=== PATIENT | female | born 1985 | race Caucasian/White ===

== ENCOUNTER → 2018-01-24 | Outpatient (CLI) | payer BC ==
[~2018-01-24] MED LIST: HYDACE5 PO; IBUP600 PO; LABE100 PO; META800 PO; METF500 PO; MULVITMINE PO; PROM25 PO; RXHYD5325 PO; RXPROM25 PO
== END ==
LOC: LAB 08:17 → LAB SHORT 08:17
DX: N39.0 Urinary tract infection, site not specified (principal)
CPT/HCPCS: 87077; 87086; 87186

== ENCOUNTER 2018-04-01 03:58 | Emergency (ER) | payer BC ==
[~2018-04-01] VITALS: Ht 167.6 cm; Wt 81.7 kg
[~2018-04-01 03:58] MED LIST changes: +Pantoprazole So40 MG PO; +SLOW FE142 MG PO; +Verotin-Gr Cap1 EACH PO
[2018-04-01 04:50] LABS: Chloride (POC) 105 mmol/L (98-108); Creatinine (POC) 0.5 mg/dL (0.6-1.0); Glucose (ISTAT POC) 105 mg/dL (70-99); Hemoglobin (POC) 11.2 g/dL (12.0-16.0); Potassium (POC) 3.4 mmol/L (3.5-5.5); Sodium (POC) 140 mmol/L (135-148); Total CO2 (POC) 20 mmol/L (21-32)
== END 2018-04-01 06:20 | disposition home or self-care (01) ==
LOC: ER 03:58
PROVIDERS: Emergency Medicine
DX: O03.9 Complete or unspecified spontaneous abortion without complication (principal); Z79.899 Other long term (current) drug therapy
CPT/HCPCS: 36415; 80047; 85014; 88305; 96374; 96375; 99284-25; J2405; J3010

== ENCOUNTER 2018-06-09 00:33 | Day surgery (SDC) | payer BC | END 2018-06-09 22:50 | disposition home or self-care (01) | LOC: RAD 00:33 | DX: Q51.3 Bicornate uterus (principal); N96 Recurrent pregnancy loss | CPT/HCPCS: 58340; 74740; Q9967 ==

== ENCOUNTER 2021-12-06 02:32 | Emergency (ER) | payer OTHER, BC ==
[~2021-12-06] VITALS: Ht 172.7 cm; Wt 122.5 kg
[2021-12-06] MEDS ORDERED: OZEMPIC0.25 MG/0. SC (03:02)
[2021-12-06] MEDS ORDERED: PANTOPRAZOLE SO40 M2 PO (03:02)
[2021-12-06] MEDS ORDERED: Prinivil10 MG PO (03:03)
[2021-12-06 03:31] LABS: BASOPHILS ABSOLUTE AUTO 0.04 K/mm3 (0.00-0.23); BASOPHILS PERCENT AUTO 0 % (0-2); EOSINOPHILS ABSOLUTE AUTO 0.04 K/mm3 (0.00-0.68); EOSINOPHILS PERCENT AUTO 0 % (0-6); Hematocrit 35.8 % (33.0-51.0); Hemoglobin 10.8 g/dL (11.5-16.0); IMMATURE GRAN ABSOLUTE AUTO 0.03 K/mm3 (0.00-0.10); IMMATURE GRAN PERCENT AUTO 0 % (0-1); LYMPHOCYTES ABSOLUTE AUTO 1.87 K/mm3 (0.84-5.20); LYMPHOCYTES PERCENT AUTO 19 % (21-46); MONOCYTES PERCENT AUTO 6 % (4-13); Mean Corpuscular HGB 21.4 pg (26.0-34.0); Mean Corpuscular HGB Conc 30.2 g/dL (31.5-36.5); Mean Corpuscular Volume 71 fL (80-100); Mean Platelet Volume 9.7 fL (9.1-12.4); NEUTROPHILS ABSOLUTE AUTO 7.05 K/mm3 (1.96-9.15); NEUTROPHILS PERCENT AUTO 73 % (41-73); Platelet Count 314 K/mm3 (150-400); RDW Coefficient Variation 16.6 % (11.7-14.2); RDW Standard Deviation 42.1 fL (35.1-46.3); Red Blood Cell Count 5.04 M/mm3 (3.80-5.20); White Blood Cell Count 9.63 K/mm3 (4.00-11.30)
[2021-12-06 03:49] LABS: Albumin, Blood 3.6 g/dL (3.4-5.0); Albumin/Globulin Ratio 0.9 (0.8-1.8); Bilirubin, Total 0.3 mg/dL (0.1-1.0); Bun/Creatinine Ratio 11.9 (12.0-20.0); Calcium, Blood 8.5 mg/dL (8.5-10.1); Creatinine, Blood 0.92 mg/dL (0.40-1.00); Globulin, Blood 3.8 g/dL (2.2-4.0); Potassium, Blood 3.8 mmol/L (3.5-5.5); Total Protein, Blood 7.4 g/dL (6.4-8.2)
== END 2021-12-06 05:18 | disposition home or self-care (01) ==
LOC: ER 02:32
PROVIDERS: Emergency Medicine
DX: R55 Syncope and collapse (principal); I10 Essential (primary) hypertension; Z79.899 Other long term (current) drug therapy
CPT/HCPCS: 36415; 80053; 84703; 85025; 93005; 93010; 99284-25; J7030

== ENCOUNTER → 2023-09-05 | Outpatient (CLI) | payer BC ==
[~2023-09-05] MED LIST changes: +ACET500 PO; +ASPI81CH PO; +DOXY100 PO; +IBU800 MG PO; +MINO2.5 PO; +OXAYDO5 M1 PO; +OZEMPIC0.25 MG/0. SC; +PANTOPRAZOLE SO40 M2 PO; +PROP60 PO; +Prinivil10 MG PO; +TIZA4 PO; +VALA500 PO; +VITAMIN D310 MC4 PO; +WEGOVY1.7 MG/0.7 SC; +ZOLP6.25 PO
[2023-09-05 16:52] LABS: Bacterial Vaginosis PCR Negative (NEGATIVE)
[2023-09-05 21:03] LABS: Candida Group, PCR DETECTED (NOT DETECT); Candida glabrata-krusei, PCR DETECTED (NOT DETECT)
== END | disposition home or self-care (01) ==
LOC: LAB SHORT 13:27 → LAB 13:27
PROVIDERS: Obstetrics & Gynecology
DX: N76.0 Acute vaginitis (principal)
CPT/HCPCS: 87481; 87661; 87801

== ENCOUNTER → 2023-09-09 | Outpatient (CLI) | payer BC ==
[2023-09-09 20:04] LABS: Bacterial Vaginosis PCR Negative (NEGATIVE); Candida glabrata-krusei, PCR NOT DETECTED (NOT DETECT)
[2023-09-09 20:15] LABS: Candida Group, PCR DETECTED (NOT DETECT)
== END ==
LOC: LAB SHORT 17:10 → LAB 17:10
PROVIDERS: Obstetrics & Gynecology
DX: N76.0 Acute vaginitis (principal); B96.89 Other specified bacterial agents as the cause of diseases classified elsewhere
CPT/HCPCS: 87481; 87661; 87801